=== PATIENT | female | born 1960 | race Caucasian/White ===

== ENCOUNTER 2021-01-03 15:17 | Observation (INO) | payer MEDICARE ==
[~2021-01-03] VITALS: Ht 152.4 cm; Wt 46.8 kg
--- NOTE | ~2021-01-03 | EC ---
PATIENT:JASPER FERRERA DATE OF SERVICE: 01/03/21 SEX: F MEDICAL RECORD: [id number] DATE OF : 58 LOCATION:[facility]. [facility].211 AGE OF PATIENT: 60 ADMISSION DATE: 01/03/21 REFERRING PHYSICIAN: INTERPRETING PHYSICIAN: BISHOP AUGUSTIN MD ECHOCARDIOGRAM REPORT ECHO CHARGES 4 ECHO COMPLETE Date: 01/04/21 CLINICAL DIAGNOSIS: CP ECHOCARDIOGRAPHIC MEASUREMENTS (adult normal given) AC root (d.<3.7cm) 3.2 cm LV Septum d (<1.2 cm> 1.0 cm Valve Excursion 1.8 cm LV Septum (systole) 1.1 cm Left Atria (s.<4.0cm> 2.8 cm LVPW d(<1.2cm) 0.8 cm RV (d.<2.3cm) 2.3 cm LVPW (sytole) 0.9 cm LV diastole(<5.6CM) 4.6 cm MV E-F(>70mm/sec) cm LV systole 3.5 cm LVOT Diameter 1.6 cm MV exc.(>10mm) 1.4 cm Est.ejection fraction (50-75%) % DOPPLER: LVIT cm/sec A 85 cm/sec E 96 cm/sec LA cm/sec RVSP 19 mmHg LVOT 124 cm/sec AOP1/2T m/s Asc. Ao 127 cm/sec RVOT 57 cm/sec RA cm/sec PA 84 cm/sec AV Gradient Peak 6.4 mmHg AV Mean 2.8 mmHg AV Area 2.0 cm MV Gradient Peak 5.4 mmHg MV Mean 2.4 mmHg MV Area cm COMMENTS: Project Eng: Douglas DAVIDSON Lease Analyst: Nancy Augustin TAPE# Pericardial Effusion N DATE OF SERVICE: PROCEDURE: Transthoracic echocardiogram. FINDINGS: 1. Left ventricle: The left ventricle has preserved left ventricular ejection fraction at 55%. The patient has no evidence of left ventricular hypertrophy. There is no diastolic dysfunction demonstrated. The right ventricle shows normal dimensions and normal function. ECHOCARDIOGRAM REPORT [id number] JASPER FERRERA The aortic valve with normal structure and function. Tricuspid valve: Normal structure and function. Normal right ventricular systolic pressures. Mitral valve: Normal structure and function. No evidence of mitral regurgitation. Pulmonic valve not well visualized, but grossly normal. IMPRESSION: Normal transthoracic echocardiogram. TRANSINT:[id number] Voice Confirmation ID: [id number] DOCUMENT ID: [id number] BISHOP AUGUSTIN MD CC: [id number] DICTATION DATE: 01/05/21 1320 TOOL GRINDER SET UP OPERATOR GEAR: 01/05/212215 DIS IN 01/04/21 [facility] [address] [id number]
[2021-01-03] MEDS ORDERED: SINGULAIR10 MG PO (15:30)
[2021-01-03] MEDS ORDERED: HYDROXYCHLOROQ200 MG PO (15:30)
[2021-01-03] MEDS ORDERED: PROZAC20 MG PO (15:31)
[2021-01-03] MEDS ORDERED: GABAPENTIN300 MG (15:31)
[2021-01-03] MEDS ORDERED: PROTONIX40 MG PO (15:31)
[2021-01-03 15:32] VITALS: BP 126/57
[2021-01-03] MEDS ORDERED: TRELEGY ELLIPT1 EACH INH (15:32)
[2021-01-03] MEDS ORDERED: METHOCARBAMOL500 MG PO (15:32)
[2021-01-03 15:38] LABS: BASOPHILS 0.2 % (0-2); EOSINOPHILS 0.5 % (0-7); HEMATOCRIT 41.3 % (36.0-48.0); HEMOGLOBIN 13.9 g/dL (12-16); IMMATURE GRANULOCYTES 0.2 % (0-5); LYMPHOCYTE ABS# 2.48 10x3/uL (1.18-3.74); LYMPHOCYTES 39.2 % (15-50); MCH 32.5 pg (26.0-34.0); MCHC 33.7 g/dL (31.0-37.0); MCV 96.5 fL (80.0-100.0); MEAN PLATELET VOLUME 9.9 fL (7.4-10.4); MONOCYTES 10.4 % (2-11); NEUTROPHIL ABS# 3.14 10x3/uL (1.56-6.13); NEUTROPHILS 49.5 % (40-80); PLATELET COUNT 208 10x3/uL (130-400); RBC 4.28 10x6/uL (4.00-5.40); RDW 12.7 % (11.5-14.5); WBC 6.3 10x3/uL (4.8-10.8)
[2021-01-03 15:58] LABS: APTT 28.7 SECONDS (22.8-39.4); CALC OSMOLALITY 278 mosm/kg (275-300); CALCIUM 9.2 mg/dL (8.5-10.1); CARBON DIOXIDE 29.4 mmol/L (21.0-32.0); CHLORIDE - SERUM 103 mmol/L (98-107); CREATININE - SERUM 0.8 mg/dL (0.6-1.3); GLUCOSE 86 mg/dL (74-106); INR 1.03 (0.85-1.17); PROTIME 12.5 SECONDS (11.6-15.0); SODIUM 141 mmol/L (136-145); UREA NITROGEN 10 mg/dL (7-18); eGFR NON AFRICAN AMERICAN 77 mL/min (90-120)
[2021-01-03 16:14] LABS: ALBUMIN 3.9 g/dL (3.4-5.0); ALKALINE PHOSPHATASE 89 U/L (30-120); ALT (SGPT) 23 U/L (10-68); BILIRUBIN - TOTAL 0.42 mg/dL (0.2-1.3); CKMB 1.5 U/L (0.0-3.6); CREATINE KINASE 93 UL (21-215); MAGNESIUM - SERUM 2.2 mg/dL (1.8-2.4); PRO BNP 55 pg/mL (0-125); PROTEIN - SERUM 7.2 g/dL (6.4-8.2); THYROID STIMULATING HORMONE 1.56 uIU/mL (0.36-3.74)
[2021-01-03 16:15] LABS: TROPONIN-I < 0.017 ng/mL (0.000-0.060)
[2021-01-03 16:52] LABS: CKMB 1.3 U/L (0.0-3.6); CREATINE KINASE 87 UL (21-215); TROPONIN-I < 0.017 ng/mL (0.000-0.060)
[2021-01-03 17:49] VITALS: BP 123/64
--- NOTE | 2021-01-03 17:52 | NUR ---
PT REPORT CALLED TO BERNARDINO BACA WITH VERBAL ACKNOWLEDGEMENT OBTAINED
[2021-01-03 18:33] VITALS: BP 108/48
--- NOTE | 2021-01-03 18:35 | NUR ---
PT TO ROOM FROM ER. SHE IS [place], STATES READ LIPS. TELEMETRY NOTIFIED OF ORDER FOR MONITORING. RESTING AT PRESENT. NO COMPLAINTS OF PAIN.
[2021-01-03 21:44] VITALS: BP 106/49
[2021-01-03 23:02] LABS: CKMB 1.1 U/L (0.0-3.6); CREATINE KINASE 77 UL (21-215)
[2021-01-03 23:03] LABS: TROPONIN-I < 0.017 ng/mL (0.000-0.060)
--- NOTE | 2021-01-03 23:28 | NUR ---
PT RESTING IN BED. DENIES CHEST PAIN, BUT DOES C/O OF HEADACHE. NO S/S OF DISTRESS OBSERVED. PROVIDED SANDWICH. HR 64 SR, CL IN REACH. WILL CTM.
--- NOTE | 2021-01-04 00:38 | NUR ---
PT DENIES CHEST PAIN BUT C/O OF LEFT ARM PAIN.
[2021-01-04 01:07] VITALS: BP 103/48
[2021-01-04 01:40] VITALS: BP 103/48; Ht 152.4 cm; Wt 46.8 kg
[2021-01-04 05:30] LABS: BASOPHILS 0.3 % (0-2); HEMATOCRIT 38.4 % (36.0-48.0); HEMOGLOBIN 12.6 g/dL (12-16); IMMATURE GRANULOCYTES 0.2 % (0-5); LYMPHOCYTE ABS# 2.38 10x3/uL (1.18-3.74); LYMPHOCYTES 41.2 % (15-50); MCH 31.7 pg (26.0-34.0); MCHC 32.8 g/dL (31.0-37.0); MCV 96.5 fL (80.0-100.0); MEAN PLATELET VOLUME 9.6 fL (7.4-10.4); MONOCYTES 9.2 % (2-11); NEUTROPHIL ABS# 2.78 10x3/uL (1.56-6.13); NEUTROPHILS 48.1 % (40-80); PLATELET COUNT 185 10x3/uL (130-400); RBC 3.98 10x6/uL (4.00-5.40); RDW 12.7 % (11.5-14.5); WBC 5.8 10x3/uL (4.8-10.8)
[2021-01-04 05:36] VITALS: BP 101/47
[2021-01-04 06:08] LABS: ALBUMIN 3.4 g/dL (3.4-5.0); ALKALINE PHOSPHATASE 76 U/L (30-120); ALT (SGPT) 19 U/L (10-68); BILIRUBIN - TOTAL 0.35 mg/dL (0.2-1.3); CALC OSMOLALITY 280 mosm/kg (275-300); CALCIUM 8.7 mg/dL (8.5-10.1); CARBON DIOXIDE 31.2 mmol/L (21.0-32.0); CHLORIDE - SERUM 104 mmol/L (98-107); CKMB 0.8 U/L (0.0-3.6); CREATINE KINASE 73 UL (21-215); CREATININE - SERUM 0.8 mg/dL (0.6-1.3); GLUCOSE 99 mg/dL (74-106); MAGNESIUM - SERUM 2.3 mg/dL (1.8-2.4); POTASSIUM - SERUM 4.1 mmol/L (3.5-5.1); PROTEIN - SERUM 6.4 g/dL (6.4-8.2); SODIUM 140 mmol/L (136-145); TROPONIN-I < 0.017 ng/mL (0.000-0.060); eGFR NON AFRICAN AMERICAN 77 mL/min (90-120)
[2021-01-04 06:13] LABS: UREA NITROGEN 17 mg/dL (7-18)
[2021-01-04 08:41] VITALS: BP 124/53
--- NOTE | 2021-01-04 16:38 | NUR ---
IV AND TELEMETRY DCD. DC PLANS GIVEN. UNDERSTANDING VOICED. ESCORTED TO CAR BY W/C.
--- NOTE | 2021-01-05 14:45 | MORECARE ---
CASE MANAGEMENT DISCHARGE SUMMARY PATIENT: JASPER FERRERA UNIT: [id number] ADM DATE: 01/03/21 AGE: 60 : 58 SEX: F ROOM/BED: D.[facility]8 AUTHOR: CONNIE,DOC PHYSICIAN: REFERRING PHYSICIAN: DENI HAYNES DO DATE OF SERVICE: 01/05/21 Case Management Discharge Planning Summary CT Patient Name: JASPER FERRERA Attending MD : DENI HINOJOSA Medical Record: [id number] Encounter : [id number] Facility : [facility] Admission Date : 117: Center Discharge Date : 01/04/[address] [place] [address] Date of : DC Plan ID : [id number] Age/Sex/Martia : 60/ F/W Printed on : 01/05/21 14:44 CT DCP Review Details Anticipated D/C: Expected LOS : 0 Case Status : NOTSTART - Initial Reviewe: [id number] - Maite Barcenas Initial Review: 01/03/2021 Planned Disposi: - Final Discharge: - Home or Self Care (Routine Discharge) Final Reviewer : JAMES : Maite Barcenas Final Review : 01/05/2021 DCP [facility] Questions [facility] An[facility] JASPER FERRERA MR#: [id number] /Age/Sex/Jkykuy43-Xax-[birth year] /60/F /W Attending Physician Name: ENOC HAYNES [id number] [id number] [facility] 1 All edits/amendments must be made on the electronic document DICTATION DATE: 01/05/21 144 STATE WILDLIFE OFFICER: SUE 01/05/21 144 RPT#: [id number] DC DATE:01/04/21 STATUS: [place] [address] END OF REPORT
== END 2021-01-04 16:39 | disposition home or self-care (01) ==
LOC: D.ER 15:17 → D.M2 17:47 → OBSVTIME 17:47 → D.M2 01-04 16:39
PROVIDERS: Emergency Medicine; Family Medicine; ADMIT Family Medicine; ATTEND Family Medicine
DX: R07.9 Chest pain, unspecified (principal); J44.9 Chronic obstructive pulmonary disease, unspecified; F32.9 Major depressive disorder, single episode, unspecified; I20.9 Angina pectoris, unspecified

== ENCOUNTER → 2021-01-28 09:53 | Outpatient (CLI) | payer MEDICARE ==
[~2021-01-28 09:53] MED LIST: GABAPENTIN300 MG; HYDROXYCHLOROQ200 MG PO; METHOCARBAMOL500 MG PO; PROTONIX40 MG PO; PROZAC20 MG PO; SINGULAIR10 MG PO; TRELEGY ELLIPT1 EACH INH
== END | disposition home or self-care (01) ==
LOC: D.HCCARDIO 09:53
PROVIDERS: ATTEND Internal Medicine Cardiovascular Disease
DX: R07.9 Chest pain, unspecified (principal)